=== PATIENT | female | born 1970 | race Two or more races ===

== ENCOUNTER → 2019-09-02 | Outpatient (CLI) | payer OTHER ==
[~2019-09-02] VITALS: Ht 162.6 cm; Wt 70.3 kg
[~2019-09-02] MED LIST: LIPO-FLAVONOID1 EACH PO
== END | disposition home or self-care (01) ==
LOC: OFIC 805 09:10
DX: H93.11 Tinnitus, right ear (principal); R42 Dizziness and giddiness; I63.89 Other cerebral infarction; J34.1 Cyst and mucocele of nose and nasal sinus

== ENCOUNTER 2020-11-04 14:01 | Emergency (ER) | payer OTHER ==
[~2020-11-04] VITALS: Ht 162.6 cm; Wt 74.4 kg
== END 2020-11-04 20:13 | disposition designated cancer center or children's hospital (05) ==
LOC: ER 14:01
DX: S06.5X9A Traumatic subdural hemorrhage with loss of consciousness of unspecified duration, initial encounter (principal); W05.2XXA Fall from non-moving motorized mobility scooter, initial encounter; Y93.89 Activity, other specified; Y92.488 Other paved roadways as the place of occurrence of the external cause; Y99.8 Other external cause status; Z03.818 Encounter for observation for suspected exposure to other biological agents ruled out